=== PATIENT | male | born 1955 | race Caucasian/White ===

== ENCOUNTER 2024-01-05 22:49 | Emergency (ER) | payer OTHER, MEDICARE ==
[2024-01-05] MEDS ORDERED: CIPROFLOXACIN 250 MG TABLET (RESTRICTED TO ID) PO ONE (23:23)
[2024-01-05 23:28] LABS: EPITHELIAL CELLS 0-5 /hpf
[2024-01-05] MEDS: CIPROFLOXACIN 500 MG TABLET (RESTRICTED TO ID) PO ONE (23:28)
[2024-01-05 23:34] VITALS: BP 156/98; PULSE 82; RESP 20; TEMP 98; BMI 28.5
== END 2024-01-05 23:43 | disposition home or self-care (01) ==
LOC: FER 22:49
DX: R33.9 Retention of urine, unspecified (principal)
CPT/HCPCS: 81003; 81015; 87086; 99283-25